=== PATIENT | female | born 1995 | race Caucasian/White ===

== ENCOUNTER 2017-02-18 05:30 | Inpatient (IN) | payer OTHER ==
[~2017-02-18] VITALS: Ht 152.4 cm; Wt 61.2 kg
[2017-02-19 03:31] LABS: HEMOGLOBIN 8.7 gm/dl (12.3-15.3)
== END 2017-02-20 15:32 | disposition home or self-care (01) | DRG 766 ==
LOC: OB 05:30
PROVIDERS: ADMIT Obstetrics & Gynecology
PROC: 10D00Z1 Extraction of Products of Conception, Low, Open Approach (ICD-10-PCS; principal; 2017-02-18 07:30)
DX: O34.211 Maternal care for low transverse scar from previous cesarean delivery (principal); Z3A.39 39 weeks gestation of pregnancy; Z37.0 Single live birth
CPT/HCPCS: 36415; 81001; 82800; 85014; 85018; 85025; 85461; 86900; 86901; 90707; C9113; J0690; J2210; J2274; J2405; J2550; J2590; J2765; J3010; J3430; J7120; Q0162

== ENCOUNTER 2017-03-14 16:33 | Emergency (ER) | payer OTHER | END 2017-03-14 17:14 | disposition home or self-care (01) | LOC: ER1 16:33 | DX: N61.1 Abscess of the breast and nipple (principal) | CPT/HCPCS: 99282 ==

== ENCOUNTER 2017-03-18 14:50 | Inpatient (IN) | payer OTHER ==
[~2017-03-18] VITALS: Ht 152.4 cm; Wt 61.2 kg
[2017-03-18] MEDS ORDERED: NORCO 5-325 TA1 EACH PO (23:19)
[2017-03-19 11:27] LABS: HEMOGLOBIN 10.7 gm/dl (12.3-15.3); RED BLOOD COUNT 4.03 M/UL (4.00-5.10); WHITE BLOOD COUNT 9.3 K/UL (4.5-11.0)
[2017-03-19 11:46] LABS: BUN/CREATININE RATIO 12 (0-10)
[2017-03-21 07:10] LABS: HEMOGLOBIN 10.3 gm/dl (12.3-15.3); RED BLOOD COUNT 3.93 M/UL (4.00-5.10); WHITE BLOOD COUNT 8.4 K/UL (4.5-11.0)
[2017-03-21 07:41] LABS: BUN/CREATININE RATIO 10 (0-10)
== END 2017-03-22 15:11 | disposition home or self-care (01) | DRG 776 ==
LOC: M/S 17:56
PROVIDERS: Internal Medicine Infectious Disease; Surgery; ADMIT Obstetrics & Gynecology
PROC: 0H9T00Z Drainage of Right Breast with Drainage Device, Open Approach (ICD-10-PCS; principal; 2017-03-19 09:00)
DX: O91.12 Abscess of breast associated with the puerperium (principal); A49.02 Methicillin resistant Staphylococcus aureus infection, unspecified site; L27.0 Generalized skin eruption due to drugs and medicaments taken internally; T36.8X5A Adverse effect of other systemic antibiotics, initial encounter; Z83.3 Family history of diabetes mellitus; Z80.1 Family history of malignant neoplasm of trachea, bronchus and lung; Z80.6 Family history of leukemia
CPT/HCPCS: 36415; 80048; 80053; 82550; 84703; 85025; 85027; 87081; G0378; G0379; J0878; J2250; J2405; J3010; J3370; J7050; J7070; J7120; Q0163

== ENCOUNTER 2017-04-10 13:05 | Inpatient (IN) | payer OTHER ==
[~2017-04-10] VITALS: Ht 152.4 cm; Wt 49.9 kg
[~2017-04-10 13:05] MED LIST: NORCO 5-325 TA1 EACH PO
[2017-04-10 14:24] LABS: HEMOGLOBIN 11.2 gm/dl (12.3-15.3); RED BLOOD COUNT 4.2 M/UL (4.00-5.10)
[2017-04-10 14:47] LABS: BUN/CREATININE RATIO 12 (0-10)
--- NOTE | 2017-04-11 01:08 | NUR ---
PT. NOTED TO BE RESTING WELL, ASLEEP IN BED. NO DISTRESS NOTED AT THIS TIME.
--- NOTE | 2017-04-11 03:56 | NUR ---
PT. NOTED TO BE RESTING WELL IN BED, PROVIDING CARE FOR BABY, NO COMPLAINTS OR NEEDS VOICED, NO DISTRESS NOTED AT THIS TIME.
--- NOTE | 2017-04-11 05:47 | NUR ---
PT. NOTED TO BE RESTING WELL, SLEEPING IN BED. NO DISTRESS NOTED.
--- NOTE | 2017-04-12 19:36 | NUR ---
CURRENTLY PATIENT IS IN ROOM WITH FAMILY. DRESSING CHANGE COMPLETED TODAY; TOLERATED WELL. WILL CONTINUE TO MONITOR.
[2017-04-13] MEDS ORDERED: ZYVOX 600 MG T600 MG PO (13:48)
[2017-04-13] MEDS ORDERED: BACTROBAN OINT22 GM (13:51)
[2017-04-13] MEDS ORDERED: NORCO 10-325 T1 EACH PO (14:51)
[2017-04-13] MEDS ORDERED: HIBICLENS (14:52)
== END 2017-04-13 18:50 | disposition home or self-care (01) | DRG 585 ==
LOC: ER1 13:05 → OB 18:19 → M/S 04-11 08:55
PROVIDERS: Emergency Medicine; Surgery; ADMIT Obstetrics & Gynecology
PROC: 0H9T0ZX Drainage of Right Breast, Open Approach, Diagnostic (ICD-10-PCS; principal; 2017-04-11 09:22)
DX: N61.1 Abscess of the breast and nipple (principal); B95.62 Methicillin resistant Staphylococcus aureus infection as the cause of diseases classified elsewhere; Z86.14 Personal history of Methicillin resistant Staphylococcus aureus infection
CPT/HCPCS: 36415; 76642-RT; 80053; 81001; 83605; 84703; 85025; 87040; 87070; 87075; 87077; 87186; 87205; 96365; 96375; 99284; J1885; J2020; J2250; J2270; J2405; J7030; J7120

== ENCOUNTER → 2017-04-14 | Outpatient (CLI) | payer OTHER ==
[~2017-04-14] MED LIST changes: +BACTROBAN OINT22 GM; +HIBICLENS; +NORCO 10-325 T1 EACH PO; +ZYVOX 600 MG T600 MG PO
== END ==
LOC: OPSV 09:00
DX: N61.1 Abscess of the breast and nipple (principal); B95.62 Methicillin resistant Staphylococcus aureus infection as the cause of diseases classified elsewhere
CPT/HCPCS: G0463

== ENCOUNTER → 2017-04-15 | Outpatient (CLI) | payer OTHER | LOC: OPSV 12:00 | DX: N61.1 Abscess of the breast and nipple (principal); B95.62 Methicillin resistant Staphylococcus aureus infection as the cause of diseases classified elsewhere | CPT/HCPCS: G0463 ==

== ENCOUNTER → 2017-04-16 | Outpatient (CLI) | payer OTHER | LOC: OPSV 12:00 | DX: N61.1 Abscess of the breast and nipple (principal); B95.62 Methicillin resistant Staphylococcus aureus infection as the cause of diseases classified elsewhere | CPT/HCPCS: G0463 ==

== ENCOUNTER → 2017-04-17 | Outpatient (CLI) | payer OTHER | LOC: OPSV 09:00 | DX: N61.1 Abscess of the breast and nipple (principal); B95.62 Methicillin resistant Staphylococcus aureus infection as the cause of diseases classified elsewhere | CPT/HCPCS: G0463 ==

== ENCOUNTER → 2017-04-18 | Outpatient (CLI) | payer OTHER | LOC: OPSV 09:00 | DX: N61.1 Abscess of the breast and nipple (principal); B95.62 Methicillin resistant Staphylococcus aureus infection as the cause of diseases classified elsewhere | CPT/HCPCS: G0463 ==

== ENCOUNTER → 2017-04-19 | Outpatient (CLI) | payer OTHER ==
[2017-04-19 11:29] LABS: HEMOGLOBIN 10.6 gm/dl (12.3-15.3); RED BLOOD COUNT 4.05 M/UL (4.00-5.10); WHITE BLOOD COUNT 4.9 K/UL (4.5-11.0)
== END ==
LOC: OPSV 10:55
PROVIDERS: Surgery
DX: N61.1 Abscess of the breast and nipple (principal); B95.62 Methicillin resistant Staphylococcus aureus infection as the cause of diseases classified elsewhere
CPT/HCPCS: 36415; 85025; G0463

== ENCOUNTER → 2017-04-20 | Outpatient (CLI) | payer OTHER | LOC: OPSV 08:45 | DX: B95.62 Methicillin resistant Staphylococcus aureus infection as the cause of diseases classified elsewhere (principal) | CPT/HCPCS: G0463 ==

== ENCOUNTER → 2017-04-21 | Outpatient (CLI) | payer OTHER | LOC: OPSV 10:25 | DX: N61.1 Abscess of the breast and nipple (principal); B95.62 Methicillin resistant Staphylococcus aureus infection as the cause of diseases classified elsewhere | CPT/HCPCS: G0463 ==

== ENCOUNTER → 2017-04-22 | Outpatient (CLI) | payer OTHER | LOC: OPSV 11:34 | DX: N61.1 Abscess of the breast and nipple (principal); B95.62 Methicillin resistant Staphylococcus aureus infection as the cause of diseases classified elsewhere | CPT/HCPCS: G0463 ==

== ENCOUNTER → 2017-04-23 | Outpatient (CLI) | payer OTHER | LOC: OPSV 11:47 | DX: N61.1 Abscess of the breast and nipple (principal); A49.02 Methicillin resistant Staphylococcus aureus infection, unspecified site | CPT/HCPCS: G0463 ==

== ENCOUNTER → 2017-04-24 | Outpatient (CLI) | payer OTHER | LOC: OPSV 09:21 | DX: N61.1 Abscess of the breast and nipple (principal); B95.62 Methicillin resistant Staphylococcus aureus infection as the cause of diseases classified elsewhere | CPT/HCPCS: G0463 ==

== ENCOUNTER → 2017-04-25 | Outpatient (CLI) | payer OTHER | LOC: OPSV 07:14 | DX: N61.1 Abscess of the breast and nipple (principal); B95.62 Methicillin resistant Staphylococcus aureus infection as the cause of diseases classified elsewhere | CPT/HCPCS: G0463 ==

== ENCOUNTER → 2017-04-26 | Outpatient (CLI) | payer OTHER | LOC: OPSV 10:41 | DX: N61.1 Abscess of the breast and nipple (principal); B95.62 Methicillin resistant Staphylococcus aureus infection as the cause of diseases classified elsewhere | CPT/HCPCS: G0463 ==

== ENCOUNTER → 2017-04-27 | Outpatient (CLI) | payer OTHER | LOC: OPSV 09:41 | DX: N61.1 Abscess of the breast and nipple (principal); B95.62 Methicillin resistant Staphylococcus aureus infection as the cause of diseases classified elsewhere | CPT/HCPCS: G0463 ==

== ENCOUNTER → 2017-04-28 | Outpatient (CLI) | payer OTHER ==
[2017-04-28 13:59] LABS: HEMOGLOBIN 10.7 gm/dl (12.3-15.3); RED BLOOD COUNT 4.14 M/UL (4.00-5.10); WHITE BLOOD COUNT 3.8 K/UL (4.5-11.0)
== END ==
LOC: OPSV 13:00
PROVIDERS: Internal Medicine Infectious Disease
DX: N61.1 Abscess of the breast and nipple (principal); B95.62 Methicillin resistant Staphylococcus aureus infection as the cause of diseases classified elsewhere
CPT/HCPCS: 36415; 85025; G0463

== ENCOUNTER → 2017-04-29 | Outpatient (CLI) | payer OTHER | LOC: OPSV 11:00 | DX: N61.1 Abscess of the breast and nipple (principal) | CPT/HCPCS: G0463 ==

== ENCOUNTER → 2017-04-30 | Outpatient (CLI) | payer OTHER | LOC: OPSV 11:00 | DX: N61.1 Abscess of the breast and nipple (principal) | CPT/HCPCS: G0463 ==

== ENCOUNTER → 2017-05-01 | Outpatient (CLI) | payer OTHER | LOC: OPSV 10:30 | DX: N61.1 Abscess of the breast and nipple (principal) | CPT/HCPCS: G0463 ==

== ENCOUNTER → 2017-05-02 | Outpatient (CLI) | payer OTHER | LOC: OPSV 07:16 | DX: N61.1 Abscess of the breast and nipple (principal) | CPT/HCPCS: G0463 ==

== ENCOUNTER → 2017-05-03 | Outpatient (CLI) | payer OTHER | LOC: OPSV 11:00 | DX: N61.1 Abscess of the breast and nipple (principal) | CPT/HCPCS: G0463 ==

== ENCOUNTER → 2017-05-04 | Outpatient (CLI) | payer OTHER | LOC: OPSV 10:53 | DX: N61.1 Abscess of the breast and nipple (principal) | CPT/HCPCS: G0463 ==

== ENCOUNTER → 2017-05-05 | Outpatient (CLI) | payer OTHER | LOC: OPSV 09:40 | DX: N61.1 Abscess of the breast and nipple (principal) | CPT/HCPCS: G0463 ==